=== PATIENT | female | born 1985 | race African-American/Black ===

== ENCOUNTER 2022-06-28 19:36 | Emergency (ER) | payer MEDICAID ==
[2022-06-28] MEDS ORDERED: Ketorolac 30 MG/ML SDV IM ONE (20:26)
[2022-06-28] MEDS ORDERED: Gabapentin 100 MG Cap PO ONE (20:36)
== END 2022-06-28 21:05 | disposition home or self-care (01) ==
LOC: JP.ED 19:36
DX: G56.03 Carpal tunnel syndrome, bilateral upper limbs (principal); K21.9 Gastro-esophageal reflux disease without esophagitis; F17.210 Nicotine dependence, cigarettes, uncomplicated; Z86.16 Personal history of COVID-19
CPT/HCPCS: 96372; 99283; A9270; J1885